=== PATIENT | female | born 1950 | race Asian ===

== ENCOUNTER 2023-10-23 11:51 | Inpatient (IN) | payer BC, OTHER ==
[~2023-10-23] VITALS: Ht 157.5 cm; Wt 70.5 kg
[2023-10-23 12:44] LABS: Urine Bacteria NONE SEEN /hpf (None Seen); Urine Blood Negative /uL (Negative); Urine Clarity Clear (Clear); Urine Protein, UAD Negative (Negative); Urine Specific Gravity 1.005 (1.001-1.035); Urine Urobilinogen Normal (Negative); Urine WBC 1 /hpf (0 - 5); Urine pH 6.5 (5.0-8.0)
[2023-10-23 12:56] LABS: Urine Color Straw (Yellow)
[2023-10-23 13:17] LABS: Basophils # (auto) 0 10 ^3/uL (0-0.2); Basophils % (auto) 0.4 % (0.0-2.0); Eosinophils # (auto) 0.4 10 ^3/uL (0-0.8); Eosinophils % (auto) 3.4 % (0.0-7.0); Hematocrit 45.2 % (36.0-46.0); Hemoglobin 14.7 g/dL (12.2-16.2); Lymphocytes # (auto) 2.9 10 ^3/uL (0.4-5.4); Lymphocytes % (auto) 27.2 % (10.0-50.0); Mean Corpuscular Hemoglobin 30.8 pg (28.0-32.0); Mean Corpuscular Hgb Conc. 32.5 g/dL (32.0-36.0); Mean Corpuscular Volume 94.8 fL (80.0-100.0); Monocytes # (auto) 1.2 10 ^3/uL (0-1.3); Monocytes % (auto) 11.1 % (0.0-12.0); Neutrophils # (auto) 6.2 10 ^3/uL (1.6-8.6); Neutrophils % (auto) 57.9 % (37.0-80.0); Nucleated Red Blood Cells % 0.1 %; Red Blood Cells 4.77 10^6/uL (4.0-5.20); Red Cell Distribution Width 13.6 % (11.8-14.3); White Blood Cell 10.8 10^3/uL (4.4-10.8)
[2023-10-23 13:31] LABS: Alanine Aminotransferase 48 U/L (7-40); Alkaline Phosphatase 69 U/L (46-116); Anion Gap 9 (5-15); Aspartate Aminotransferase 38 U/L (13-40); BUN/Creatinine Ratio 20.4 (10.0-20.0); Bilirubin, Total 0.5 mg/dL (0.2-1.0); Blood Urea Nitrogen 10 mg/dL (9-23); Carbon Dioxide 25 mmol/L (20-30); Chloride 105 mmol/L (98-107); Glucose 91 mg/dL (74-106); Potassium 4.5 mmol/L (3.5-5.1); Sodium 139 mmol/L (136-145); Total Protein 6.5 g/dL (5.7-8.2)
[2023-10-23 14:17] LABS: Base Excess -0.8 mmol/L (-2.0-2.0)
[2023-10-23] MEDS ORDERED: CELE1CAP8 PO (16:42)
[2023-10-23] MEDS ORDERED: LOS25T PO (16:42)
[2023-10-23] MEDS ORDERED: MORPHINE SULFATE INJ 2 MG/ml SYRG IV PRN ×2 (16:45)
[2023-10-23] MEDS ORDERED: DOCUSATE SOD 100 MG CAP PO PRN (16:45)
[2023-10-23] MEDS ORDERED: ACETAMINOPHEN 325 MG TAB PO PRN (16:45)
[2023-10-23] MEDS ORDERED: ONDANSETRON HCL 4 MG/2 ML VIAL IV PRN (16:45)
[2023-10-23] MEDS ORDERED: NITROGLYCERIN 0.4 MG SL TAB SL PRN (16:45)
[2023-10-23 18:00] VITALS: PULSE 91; RESP 16; O2SAT 93
[2023-10-23] MEDS: ALBUTEROL SULF 2.5 MG/0.5ML(0.5%) NEB SOLN NEB SCH (18:00)
[2023-10-23] MEDS: IPRATROPIUM BROM 0.5 MG/2.5ML INH SOL NEB SCH (18:00)
[2023-10-23 18:10] VITALS: PULSE 90; RESP 16; O2SAT 100
[2023-10-23] MEDS: IOHEXOL 350 MG/ML 100ML IJ ONE ×2 (18:34→20:15)
[2023-10-23 19:31] VITALS: BP 117/87; PULSE 90; RESP 16; TEMP 98; O2SAT 93
[2023-10-23] MEDS ORDERED: CELECOXIB 100 MG CAP PO SCH (22:00)
[2023-10-23] MEDS: ENOXAPARIN SOD 40 MG/0.4 ML SYRINGE SC ONE (22:58)
[2023-10-23] MEDS: PIPERACILLIN-TAZOB 3.375GM 100 ML IV ONE (22:58)
[2023-10-23 23:04] VITALS: BP 115/73; PULSE 71; RESP 18; O2SAT 94
[2023-10-24] MEDS: levoFLOXacin 750MG 150 ML IV ONE (00:30)
[2023-10-24] MEDS: HYDROcodone-ACET 5/325MG TAB PO PRN (01:58)
[2023-10-24] MEDS ORDERED: levoFLOXacin 750MG 150 ML IV SCH (10:00)
[2023-10-24] MEDS ORDERED: ENOXAPARIN SOD 40 MG/0.4 ML SYRINGE SC SCH (10:00)
[2023-10-24] MEDS ORDERED: LOSARTAN POTASSIUM 25 MG TAB PO SCH (10:00)
== END 2023-10-24 05:03 | disposition left against medical advice (07) | DRG 177 ==
LOC: ER 11:51 → TELE 16:36
PROVIDERS: ADMIT Nurse Practitioner Family; ATTEND Internal Medicine Geriatric Medicine
DX: J15.69 Pneumonia due to other Gram-negative bacteria (principal); I26.99 Other pulmonary embolism without acute cor pulmonale; J96.00 Acute respiratory failure, unspecified whether with hypoxia or hypercapnia; I10 Essential (primary) hypertension; G89.29 Other chronic pain; Z87.01 Personal history of pneumonia (recurrent)
CPT/HCPCS: 36415; 36600; 71045; 71275; 80053; 81001; 82805; 83605; 83880; 84484; 85025; 85379; 94640; G0378; J1956; J2543